=== PATIENT | female | born 1975 | race Caucasian/White ===

== ENCOUNTER 2017-10-13 14:13 | Emergency (ER) | payer BC ==
[~2017-10-13] VITALS: Ht 170.2 cm; Wt 93.0 kg
[~2017-10-13 14:13] MED LIST: ADDERALL 10 MG10 MG
--- OUTSIDE RECORDS SUMMARY | 2017-10-13 14:15 | XMS REPORT ---
Author Author [facility] Address Unknown Phone Unavailable Care Team Providers Care Fire Alarm Mechanic Name Role Phone MELODY HENDERSON Unavailable Unavailable Problems This patient has no known problems. Allergies, Adverse Reactions, Alerts This patient has no known allergies or adverse reactions. Medications This patient has no known medications. Results Test Description Test Time Test Comments Text Results Atomic Results Result Comments HAND 3+ VIEWS LEFT [place] [id number] [place] [address] Patient Name: YO DAVIS MR #: [id number] : 1975 Age/Sex: 42/F Req #: [id number] Adm Physician: Ordered by: TASHA SANTOYO BUDGET TECHNICIAN Report #: [id number] Location: ER Room/Bed: Procedure: [id number] DX/HAND 3+ VIEWS LEFT Exam Date: 02/25/17 Exam Time: 1435 REPORT STATUS: Signed PROCEDURE: X-RAY LEFT HAND, THREE OR MORE VIEWS COMPARISON: None. INDICATIONS: PAIN/SWELLING TO LEFT 4TH KNUCKLE FINDINGS: There are no acute displaced fractures, dislocations, lytic or blastic lesions. The bones are well-mineralized. Joint spaces are relatively well-preserved. The soft- tissues are unremarkable. CONCLUSION: No acute abnormalities. Clovis Wilkins M.D. Dictated by: Clovis Wilkins M.D. on 10/11/ 2017 at 15:09 Electronically approved by: Clovis Wilkins M.D. on 03/2017 at 15:09 Dictated By: CLOVIS WILKINS MD [id number] Transcribed By: LUZ on 02/25/171508 COPY TO: TASHA SANTOYO NP
[2017-10-13 15:15] VITALS: BP 145/95
== END 2017-10-13 15:00 | disposition home or self-care (01) ==
LOC: ER 14:13
DX: B02.9 Zoster without complications (principal); F41.0 Panic disorder [episodic paroxysmal anxiety]
CPT/HCPCS: 93005; 99283